=== PATIENT | male | born 1965 | race Caucasian/White ===

== ENCOUNTER 2016-12-06 08:08 | Emergency (ER) | payer OTHER ==
[~2016-12-06] VITALS: Ht 165.1 cm; Wt 89.0 kg
[2016-12-06 08:10] VITALS: Ht 165.1 cm; Wt 89.0 kg
[2016-12-06] MEDS ORDERED: KETOROLAC 30 MG INJ IM STA (08:25)
--- NOTE | 2016-12-06 08:54 | ERD ---
ER Documentation Chief Complaint Date/Time DATE: 12/06/16 TIME: 08:49 Chief Complaint recurrent back/neck pain HPI This patient is a 51-year-old male with history of low back and neck pain ongoing since 1995, treated by his PCP multiple times, patient has had multiple MRIs done on his neck, back, shoulders, and knees, presenting to the emergency department for exacerbation of low back and neck pain for the past 2 days. He states his pain currently is an 8 out of 10 on the pain scale. The pain is exacerbated with movement. He takes [place] at home for pain relief. He states he has an appointment with a painter supervisor next month for possible localized pain relief injections. The patient denies any loss of function of extremities, numbness, tingling, loss of bowel or bladder function, fever, chills, nausea, vomiting, diarrhea, or other symptoms at this time. ROS All systems reviewed and are negative except as per history of present illness. Medications Home Meds Active Scripts Oxycodone HCl/Acetaminophen (Percocet 10-325 mg Tablet) 1 Each Tablet, 1 EACH PO Q6, #20 TAB Prov:LY VALDERRAMA PA-C 12/07/16 Naproxen* (Naprosyn*) 500 Mg Tablet, 500 MG PO BID Y for PAIN AND/OR INFLAMMATION, #30 TAB Prov:LY VALDERRAMA PA-C 12/07/16 Prednisone* (Prednisone*) 20 Mg Tab, 40 MG PO DAILY for 4 Days, TAB Prov:LY VALDERRAMA PA-C 12/07/16 Allergies Allergies: Coded Allergies: No Known Allergy (Unverified , 12/06/16) PMhx/Soc History of Surgery: Yes (arm surgery) Hx Miscellaneous Medical Probl: Yes (back pains) Hx Alcohol Use: No Hx Substance Use: No Hx Tobacco Use: No Smoking Status: Never smoker FmHx Noncontributory for chief complaint Physical Exam Vitals Vital Signs Date Time Temp Pulse Resp B/P Pulse Ox O2 Delivery O2 Flow Rate FiO2 12/06/16 09:20 98.3 74 18 142/66 99 12/06/16 08:10 98.1 99 18 157/78 99 Physical Exam INITIAL VITAL SIGNS: Reviewed by me. GENERAL: Alert and interactive. No acute distress. HEAD: Head is normocephalic and atraumatic. EYES: EOMI. No scleral icterus. No conjunctival injection. ENT: Moist mucosa. NECK: Supple. Limited range of motion secondary to pain. The patient has pain on flexion and extension of his neck. There is no midline tenderness. BACK: The patient has tenderness to palpation of the paraspinal muscles of the lumbar spine. There is no midline tenderness. There is positive straight leg raise test bilaterally. RESPIRATORY: Normal respiratory effort. Clear breath sounds bilaterally. No wheezing, rales, or rhonchi. CV: Regular rate and rhythm. Normal S1 S2. No S3 or S4. No murmurs. ABDOMEN: Soft, non-distended, non-tender. No guarding. No rebound. No masses. EXTREMITIES: No deformity. SKIN: Warm and dry. NEUROLOGIC: Alert and oriented x 4. Speech is normal. Moves all extremities equally. No motor or sensory deficits noted. Results 24 hrs Current Medications Medications (Trade) Dose Ordered Sig/Adina Route PRN Reason Start Time Stop Time Status Last Admin Dose Admin Ketorolac Tromethamine (Toradol) 30 mg ONCE STAT IM 12/06/16 08:25 12/06/16 08:27 DC 12/06/16 08:34 Procedures/MDM 51-year-old male presents to the emergency department for exacerbation of chronic neck and low back pain. The patient is on multiple MRIs done by his primary care physician. He has been treated for pain by his primary care physician and states he has an appointment next month. On physical examination there are no neurological or strength deficits noted. The patient has intact sensation in all 4 extremities. The patient is able to move all 4 extremities equally. The patient brought his MRI results with him and on review he has mild desiccation at L3 through L4 and L5 through S1. He also has disc herniation at C2-C3 through C6-C7. The patient has an appointment for next month with his primary care physician. Because the patient has had outpatient MRI imaging done I believe there is no need for imaging at this time. I have ruled out cauda equina and other spinal emergencies requiring further diagnostic studies or treatment. The patient will be treated in the department with injection of 30 mg of IM Toradol. On reexamination the patient was feeling improved. The patient will be discharged home with a prescription for tramadol to bridge him until his next appointment with his primary care physician. The patient was instructed to return to the emergency department with any new or worsening symptoms. He understands and his questions and concerns of been addressed. He is stable for discharge at this time. Departure Diagnosis: Primary Impression: Chronic back pain Condition: Stable Patient Instructions: Back Pain (Acute Or Chronic) Referrals: EMEKA COOK Additional Instructions: Follow-up with your primary care physician within 1 week. Return to the emergency department immediately should you have any new or worsening symptoms, uncontrolled fevers, or other unexplained symptoms. Take all medications as directed. BIANCA FLORES PA-C Dec 06, 2016 08:54
[2016-12-06 09:20] VITALS: BP 142/66; PULSE 74; RESP 18; TEMP 98.3
[2016-12-07] MEDS ORDERED: PRED20TA PO (01:47)
[2016-12-07] MEDS ORDERED: NAPR-260 PO (01:47)
[2016-12-07] MEDS ORDERED: OXYC-209 PO ×2 (01:47→01:52)
== END 2016-12-06 09:20 | disposition home or self-care (01) ==
LOC: FTE 08:08
DX: M54.5 Low back pain (principal)
CPT/HCPCS: 96372; J1885; Z7502

== ENCOUNTER 2016-12-06 23:52 | Emergency (ER) | payer OTHER ==
[~2016-12-06] VITALS: Ht 170.2 cm; Wt 83.0 kg
[2016-12-06 23:55] VITALS: Ht 170.2 cm; Wt 83.0 kg
[2016-12-07] MEDS ORDERED: ONDANSETRON 4 MG INJ IV STA ×2 (00:54→02:03)
[2016-12-07] MEDS ORDERED: morphine 4 MG/ML VIAL IV STA (00:54)
[2016-12-07] MEDS ORDERED: SOD CHLORIDE 0.9% 500 ML IV ONE (01:00)
[2016-12-07] MEDS ORDERED: DEXAMETHASONE 10 MG/ML 1 ML INJ IV ONE (01:00)
--- NOTE | 2016-12-07 01:17 | ERD ---
ER Documentation Chief Complaint Date/Time DATE: 12/07/16 TIME: 01:09 Chief Complaint neck pain, back pain x 2 days, denies injury HPI 51-year-old male with history of chronic back and neck pain, multiple bulging disks, and spinal canal narrowing along the C-spine, presents to the emergency department with gradually worsening pain in his neck and shoulder region. Patient states he has experienced this pain in the past and has been seen and evaluated by an head orthopedic team physician. Patient underwent MRI of the C-spine in February 2016 which revealed bulging disks in spinal canal narrowing. Patient was prescribed [place] for pain. Patient states that today he has taken 3 [place]'s without relief. He states that he is in 10 out of 10 constant throbbing pain localized to his neck and shoulders without radiation of pain to his arms. Patient denies any low back pain at this time. Patient denies any recent upper respiratory illness, fever, cough, diarrhea, abdominal pain, nausea, or vomiting. Patient states he has follow-up with head orthopedic team physician but is here for pain control. Patient states that he ran out of his [place] supply. ROS All systems reviewed and are negative except as per history of present illness. Allergies Allergies: Coded Allergies: No Known Allergy (Unverified , 12/06/16) PMhx/Soc History of Surgery: Yes (arm surgery) Hx Miscellaneous Medical Probl: Yes (back pains) Hx Alcohol Use: No Hx Substance Use: No Hx Tobacco Use: No Smoking Status: Never smoker Physical Exam Vitals Vital Signs Date Time Temp Pulse Resp B/P Pulse Ox O2 Delivery O2 Flow Rate FiO2 12/06/16 23:55 97.4 102 20 140/104 99 Physical Exam Const: Well-developed, nontoxic-appearing, in moderate distress Head: Atraumatic Eyes: Normal Conjunctiva ENT: Normal External Ears, Nose and Mouth. Neck: Full range of motion..~ No meningismus. Resp: Clear to auscultation bilaterally Cardio: Regular rate and rhythm, no murmurs Abd: Soft, non tender, non distended. Normal bowel sounds Skin: No petechiae or rashes Back: Tender paraspinous muscle upon palpation. Visible paraspinous muscle spasm. Patient unable to rotate, flex, or extend neck due to pain. Full range of motion at shoulder, elbow, wrist joint. +2 point discrimination at radial, median and ulnar distributions of upper extremities bilaterally. No midline or flank tenderness Ext: No cyanosis, or edema Neur: Awake and alert Psych: Normal Mood and Affect Results 24 hrs Current Medications Medications (Trade) Dose Ordered Sig/Adina Route PRN Reason Start Time Stop Time Status Last Admin Dose Admin Morphine Sulfate (morphine) 4 mg ONCE STAT IV 12/07/16 00:54 12/07/16 00:57 DC Ondansetron HCl (Zofran Inj) 4 mg ONCE STAT IV 12/07/16 00:54 12/07/16 00:57 DC Dexamethasone 10 mg 10 mg ONCE ONCE IV 12/07/16 01:00 12/07/16 01:01 DC Sodium Chloride (NS) 500 ml @ 500 mls/hr Q1H ONCE IV 12/07/16 01:00 12/07/16 01:59 Procedures/MDM 51-year-old male with history of chronic low back and cervical spine pain presents to the emergency department for pain control. Patient received IV morphine and IV Decadron while in the emergency department today Based on patient's history of present illness and physical examination the decision was made to discharge. The patient was re-evaluated after ED treatment and stabilizing measures, and symptoms have improved. There is no evidence of life threatening injuries or illnesses at this time. On re-examination, patient resting in no distress, stable vital signs, reports feeling better and safe for discharge with outpatient follow up with PMD in 1-2 days. Patient given return precautions. Patient instructed to follow-up with head orthopedic team physician for possible surgical consult and better management of pain. LY VALDERRAMA PA-C Dec 07, 2016 01:17
[2016-12-07] MEDS ORDERED: PRED20TA PO (01:47)
[2016-12-07] MEDS ORDERED: OXYC-209 PO ×2 (01:47→01:52)
[2016-12-07] MEDS ORDERED: NAPR-260 PO (01:47)
[2016-12-07] MEDS ORDERED: HYDROmorphONE 2 MG/ML SYG IV STA (02:03)
[2016-12-07] MEDS ORDERED: HYDROmorphONE 1 MG/ML SYG IV STA (02:46)
[2016-12-07 03:39] VITALS: BP 132/93; PULSE 97; RESP 20; TEMP 98
== END 2016-12-07 03:41 | disposition home or self-care (01) ==
LOC: FTE 23:52
DX: M54.2 Cervicalgia (principal); M54.5 Low back pain
CPT/HCPCS: 96374; 96375; 96376; J1100; J1170; J2270; J2405; J7040; Z7502

== ENCOUNTER 2017-03-31 00:02 | Emergency (ER) | payer OTHER ==
[~2017-03-31] VITALS: Ht 167.6 cm; Wt 86.5 kg
[~2017-03-31 00:02] MED LIST: NAPR-260 PO; OXYC-209 PO; PRED20TA PO
[2017-03-31 00:05] VITALS: Ht 167.6 cm; Wt 86.5 kg
[2017-03-31] MEDS ORDERED: FLUC150T17 PO (01:50)
[2017-03-31] MEDS ORDERED: CLOT30CR24 TOP (01:50)
--- NOTE | 2017-03-31 02:14 | ERD ---
ER Documentation Chief Complaint Date/Time DATE: 03/31/17 TIME: 02:11 Chief Complaint Pain in the tip of the penile area and cracking of the skin started yesterday. HPI 51-year-old male presents here in emergency department for complaint of pain, cracking of the skin surrounding the tip of the penile area started yesterday. Patient is complaining of pain upon urination because of the open wounds, burning pain 4/10 scale, specifically urination. Patient denies any penile discharge. Patient is uncircumcised. Patient denies any scrotal pain or scrotal swelling. Patient denies any skin or redness. Patient denies any lesions in other parts of the penile area or scrotal area. Patient denies any new sexual partners. ROS All systems reviewed and are negative except as per history of present illness. Medications Home Meds Active Scripts Fluconazole* (Diflucan*) 150 Mg Tablet, 150 MG PO ONCE, #1 TAB Prov:ADY BURRIS TOURIST HOME KEEPER 03/31/17 Clotrimazole* (Clotrimazole* AF) 1% - 30 Gm Cream.gm., 1 APPLIC TOP BID for 7 Days, TUB Prov:ADY BURRIS [employer]OURIST HOME KEEPER 03/31/17 Oxycodone HCl/Acetaminophen (Percocet 10-325 mg Tablet) 1 Each Tablet, 1 EACH PO Q6, #20 TAB Prov:LY VALDERRAMA PA-C 12/07/16 Naproxen* (Naprosyn*) 500 Mg Tablet, 500 MG PO BID Y for PAIN AND/OR INFLAMMATION, #30 TAB Prov:LY VALDERRAMA PA-C 12/07/16 Prednisone* (Prednisone*) 20 Mg Tab, 40 MG PO DAILY for 4 Days, TAB Prov:LY VALDERRAMA PA-C 12/07/16 Allergies Allergies: Coded Allergies: No Known Allergy (Unverified , 12/06/16) PMhx/Soc Medical and Surgical Hx: pt denies Medical Hx History of Surgery: Yes (arm surgery) Hx Miscellaneous Medical Probl: No Hx Alcohol Use: No Hx Substance Use: No Hx Tobacco Use: No Smoking Status: Never smoker FmHx Family History: No coronary disease, No diabetes, No other Physical Exam Vitals Vital Signs Date Time Temp Pulse Resp B/P Pulse Ox O2 Delivery O2 Flow Rate FiO2 03/31/17 00:05 97.0 79 16 140/81 98 Physical Exam GENERAL: The patient is well developed and appropriate for usual state of health, in no apparent distress. CHEST: Clear to auscultation bilaterally. There are no rales, wheezes or rhonchi. HEART: Regular rate and rhythm. No murmurs, clicks, rubs or gallops. No S3 or S4. ABDOMEN: Soft, nontender and nondistended. Good bowel sounds. No rebound or guarding. No gross peritonitis. No gross organomegaly or masses. No Bar sign or McBurney point tenderness. BACK: No midline or flank tenderness. EXTREMITIES: Equal pulses bilaterally. There is no peripheral clubbing, cyanosis or edema. No focal swelling or erythema. Full range of motion. Grossly neurovascularly intact. NEURO: Alert and oriented. Cranial nerves 2-12 intact. Motor strength in all 4 extremities with 5/5 strength. Sensation grossly intact. Normal speech and gait. SKIN: There is no apparent rash or petechia. The skin is warm and dry. HEMATOLOGIC AND LYMPHATIC: There is no evidence of excessive bruising or lymphedema. No gross cervical, axillary, or inguinal lymphadenopathy. : Noted dryness of the skin and maceration on the tip of the penile area with some cracking of the skin noted, no penile discharge noted. No scrotal redness, no scrotal tenderness noted. No penile discharge noted. Procedures/MDM Medical decision making: Patient symptoms most likely is consistent with balanitis. No symptoms of penile discharge, no symptoms of any acute bacterial infection. No suspicion for orchitis epididymitis testicular torsion. No suspicion for any STDs at this time. Prescription was given for clotrimazole, Diflucan, is advised to follow with primary doctor in 2-3 days for reevaluation of symptoms, patient is advised to do good penile hygiene, patient is advised to return to emergency department for any worsening symptoms. Departure Diagnosis: Primary Impression: Balanitis Condition: Stable Patient Instructions: ADY Freitas NP March 31, 2017 02:14
== END 2017-03-31 02:25 | disposition home or self-care (01) ==
LOC: FTE 00:02
DX: N48.1 Balanitis (principal)
CPT/HCPCS: 99284

== ENCOUNTER 2017-11-20 11:57 | Emergency (ER) | END 2017-11-20 13:07 | disposition home or self-care (01) ==

== ENCOUNTER 2018-01-23 06:12 | Emergency (ER) | END 2018-01-23 08:39 | disposition home or self-care (01) ==

== ENCOUNTER 2018-05-31 12:30 | Emergency (ER) | END 2018-05-31 14:00 | disposition home or self-care (01) ==

== ENCOUNTER 2018-08-23 00:34 | Emergency (ER) | END 2018-08-23 02:33 | disposition home or self-care (01) ==

== ENCOUNTER 2018-12-19 09:25 | Emergency (ER) | payer OTHER ==
[~2018-12-19] VITALS: Ht 162.6 cm; Wt 80.6 kg
[~2018-12-19 09:25] MED LIST changes: +ALBU18HF INHALATION; +AMOX1TAB10 PO; +AMOX500C2 PO; +AZIT250T PO; +BENZ200C68 PO; +CLOT30CR24 TOP; +CYCL10TA7 PO; +FLUC150T PO; +GUAI-173 PO; +IBUP-1542 PO; -NAPR-260 PO; +NAPR-985 PO; +PHEN177S6 MM; +TRAM50TA PO; +TRAM50TA2 PO
[2018-12-19 09:32] VITALS: BP 139/93; PULSE 67; RESP 18; Ht 162.6 cm; Wt 80.6 kg
--- NOTE | 2018-12-19 09:46 | ERD ---
ER Documentation Chief Complaint Chief Complaint sorethroat and cough x4 days HPI 53-year-old male, presents to the emergency department, complaining of 4 days with worsening of upper respiratory symptoms including cough, subjective fever, chills and sore throat. The patient denies shortness of breath, no chest pain, no abdominal pain. Medications taken: Robitussin without improvement of the symptoms. The patient is requesting a prescription for antibiotics, he states that amoxicillin does not work for him. ROS All systems reviewed and are negative except as per history of present illness. Medications Home Meds Active Scripts Ibuprofen* (Motrin*) 400 Mg Tab, 400 MG PO Q8, #15 TAB Prov:LYN PRESCOTT MD 12/19/18 [id number]-[id number]-Rfmcbsartr Hb* (Guaifenesin* DM Syrup) 120 Ml Syrup, 10 ML PO Q4H PRN for COUGH, #120 ML Prov:LYN PRESCOTT MD 12/19/18 Azithromycin* (Zithromax*) 250 Mg Tablet, 250 MG PO .ZPACK DIRECTED, #6 TAB TAKE 500 MG (2 TABS) THE FIRST DAY THEN 250 MG (1 TAB) DAYS 2-5 Prov:LYN PRESCOTT MD 12/19/18 Guaifenesin* (Tussin*) 100 Mg/5 Ml Syrup, 200 MG PO Q6 PRN for COUGH, #120 ML Prov:CHANDRAKANT STORM 08/23/18 Phenol* (Throat [place]*) 177 Ml [place], 2 SPRAY MM Q2H PRN for SORE THROAT for 3 Days, SPRAY Prov:CHANDRAKANT STORM 08/23/18 Ibuprofen* (Motrin*) 600 Mg Tab, 600 MG PO Q6, #30 TAB Prov:CHANDRAKANT STORM 08/23/18 Azithromycin* (Zithromax*) 250 Mg Tablet, 250 MG PO .ZPACK DIRECTED, #6 TAB TAKE 500 MG (2 TABS) THE FIRST DAY THEN 250 MG (1 TAB) DAYS 2-5 Prov:CHANDRAKANT STORM 08/23/18 Tramadol HCl (Tramadol HCl) 50 Mg Tablet, 50 MG PO Q4 PRN for PAIN, #20 TAB Prov:NOE SOLANO MD 05/31/18 Tramadol Hcl* (Ultram*) 50 Mg Tablet, 50 MG PO Q6H PRN for PAIN, #20 TAB Prov:NOE SOLANO MD 05/31/18 Cyclobenzaprine Hcl* (Cyclobenzaprine Hcl*) 10 Mg Tablet, 10 MG PO TID, #20 TAB Prov:NOE SOLANO MD 05/31/18 Prednisone* (Prednisone*) 20 Mg Tab, 40 MG PO DAILY for 4 Days, TAB Prov:NOE SOLANO MD 05/31/18 Prednisone* (Prednisone*) 20 Mg Tab, 40 MG PO DAILY for 5 Days, TAB Prov:OSVALDO YU PA-C 01/23/18 Amoxicillin/Potassium Clav (Amox-Clav 875-125 mg Tablet) 875-125 mg Tab, 1 TAB PO BID, #20 TAB Prov:OSVALDO YU PA-C 01/23/18 Amoxicillin* (Amoxicillin*) 500 Mg Cap, 500 MG PO BID for 14 Days, CAP Prov:OSVALDO YU PA-C 01/23/18 Ibuprofen* (Motrin*) 600 Mg Tab, 600 MG PO Q6, #30 TAB Prov:BIANCA FLORES PA-C 11/20/17 Benzonatate* (Benzonatate*) 200 Mg Capsule, 200 MG PO TID PRN for COUGH, #20 CAP Prov:BIANCA FLORES PA-C 11/20/17 Albuterol Sulfate* (Ventolin HFA*) 18 Gm Hfa.aer.ad, 2 PUFF INHALATION Q4H, #1 INHALER Prov:BIANCA FLORES PA-C 11/20/17 Azithromycin* (Zithromax*) 250 Mg Tablet, 250 MG PO .ZPACK DIRECTED, #6 TAB TAKE 500 MG (2 TABS) THE FIRST DAY THEN 250 MG (1 TAB) DAYS 2-5 Prov:BIANCA FLORES PA-C 11/20/17 Fluconazole* (Diflucan*) 150 Mg Tablet, 150 MG PO ONCE, #1 TAB Prov:ADY BURRIS NP 03/31/17 Clotrimazole* (Clotrimazole* AF) 1% - 30 Gm Cream.gm., 1 APPLIC TOP BID for 7 Days, TUB Prov:ADY BURRIS PRINTING MACHINIST 03/31/17 Oxycodone HCl/Acetaminophen (Percocet 10-325 mg Tablet) 1 Each Tablet, 1 EACH PO Q6, #20 TAB Prov:LY VALDERRAMA PA-C 12/07/16 Naproxen* (Naprosyn*) 500 Mg Tablet, 500 MG PO BID PRN for PAIN AND/OR INFLAMMATION, #30 TAB Prov:LY VALDERRAMA PA-C 12/07/16 Prednisone* (Prednisone*) 20 Mg Tab, 40 MG PO DAILY for 4 Days, TAB Prov:LY VALDERRAMA PA-C 12/07/16 Allergies Allergies: Coded Allergies: No Known Allergy (Unverified , 12/06/16) PMhx/Soc History of Surgery: No Anesthesia Reaction: No Hx Neurological Disorder: No Hx Respiratory Disorders: No Hx Cardiac Disorders: No Hx Psychiatric Problems: No Hx Miscellaneous Medical Probl: No Hx Alcohol Use: No Hx Substance Use: No Hx Tobacco Use: No FmHx Family History: No diabetes, No coronary disease Physical Exam Vitals Vital Signs Date Temp Pulse Resp B/P (MAP) Pulse Ox O2 O2 Flow FiO2 Time Delivery Rate 12/19/18 97.8 67 18 139/93 98 09:32 (108) Physical Exam Const: No acute distress Head: Atraumatic Eyes: Injected conjunctiva ENT: Erythematous oropharynx, tonsils not enlarged. Neck: Full range of motion. No meningismus. Resp: Rhonchi to auscultation bilaterally Cardio: Regular rate and rhythm, no murmurs Abd: Soft, non tender, non distended. Normal bowel sounds Skin: No petechiae or rashes Back: No midline or flank tenderness Ext: No cyanosis, or edema Neur: Awake and alert Psych: Normal Mood and Affect Procedures/MDM Vital signs stable, no respiratory distress. Differential diagnosis include but not limited to: Respiratory infection bacterial/viral/fungal. Influenza, croup, bronchiolitis, pneumonitis, allergies, GERD. Less likely foreign body aspiration, cardiac related. Physical examination and clinical presentation consistent most likely with viral infection with early superimposed bacterial infection. During the ED course the patient remained stable, no new complaints. Treatment options and clinical impression discussed with the patient who agrees with management. The patient is stable to be treated outpatient and will be discharged home. Some side effects of prescribed medications (headache, rash, nausea, vomiting, diarrhea, interactions with other medications) were reviewed. The patient needs to follow up with the primary care provider in the next 48h. If symptoms persist, worsen or new symptoms develop, then patient should return to the ED immediately. Disclaimer: Inadvertent spelling and grammatical errors are likely due to EHR/dictation software use and do not reflect on the overall quality of patient care. Also, please note that the electronic time recorded on this note does not necessarily reflect the actual time of the patient encounter. Departure Diagnosis: Primary Impression: Cough Condition: Stable Additional Instructions: Muchas latasha por [facility] para mccain servicio. Esperamos que en mccain visita a la margarita de emergencia mccain problema medico haya sido solucionado y que se sienta mucho mejor. Para estar seguros que mccain mejoria sigue en proceso, le pedimos el favor de hacer fartun charlie de seguimiento medico con mccain doctor primario en los proximos 2-4 cat. Lleve con usted estos documentos y las medicinas recetadas. Si brittney sintomas empeoran, NO SE ESPERE, por favor regrese a margarita de emergencia INMEDIATAMENTE. En nelli que usted no tenga un mdico de atencin primaria: Llame al mdico o clnica comunitaria de referencia que aparece abajo eden las horas de consultorio para hacer fartun charlie para que le vean. CLINICAS: [facility] [phone] [facility] [phone] [facility] [phone] [facility] [phone] [address] [place] [phone] [facility]. [phone] LNY BLAKE MD Dec 19, 2018 09:46
[2018-12-19] MEDS ORDERED: GUAI120S26 PO (09:55)
[2018-12-19] MEDS ORDERED: AZIT250T PO (09:55)
[2018-12-19] MEDS ORDERED: IBUP-1561 PO (09:55)
== END 2018-12-19 10:07 | disposition home or self-care (01) ==
LOC: FTE 09:25
DX: R05 Cough (principal)
CPT/HCPCS: 99283

== ENCOUNTER 2019-02-24 15:45 | Emergency (ER) | payer OTHER ==
[~2019-02-24] VITALS: Ht 170.2 cm; Wt 78.0 kg
[~2019-02-24 15:45] MED LIST changes: +GUAI120S26 PO; +IBUP-1561 PO
[2019-02-24 15:51] VITALS: BP 147/70; PULSE 85; RESP 19; Ht 170.2 cm; Wt 78.0 kg
[2019-02-24] MEDS ORDERED: KETOROLAC 60 MG INJ IM STA (17:31)
[2019-02-24] MEDS ORDERED: traMADol 50 MG TAB PO ONE (18:00)
[2019-02-24] MEDS ORDERED: DIAZEPAM 5 MG TAB PO ONE (18:00)
[2019-02-24] MEDS ORDERED: TRAM50TA2 PO (18:20)
[2019-02-24] MEDS ORDERED: IBUP800T48 PO (18:20)
[2019-02-24] MEDS ORDERED: BACL10TA PO (18:20)
[2019-02-24] MEDS ORDERED: PRED20TA PO (18:20)
--- NOTE | 2019-02-24 20:36 | ERD ---
ER Documentation Chief Complaint Chief Complaint right arm, shoulder, back pain x 4 months got worse HPI History of Present Illness: Patient coming in today with complaint of chronic right arm pain, right shoulder pain, generalized back pain for 4 months; patient reports pain has worsened over the past 2 months. Patient reports he has seen pain management at the end of 2018 in which he was given several injections in his neck and shoulders, some relief with pain but he is hesitant that too many medications can be problematic. Patient denies any joint genitourinary symptoms, neurological symptoms, or any other associated symptoms. At home pharmacological/nonpharmacological treatment for symptoms: denies Denies social concerns; Denies recent foreign travel ROS All systems reviewed and are negative except as per history of present illness. Medications Home Meds Active Scripts Baclofen* (Baclofen*) 10 Mg Tablet, 10 MG PO BID PRN for MUSCLE SPASMS, #30 TAB Prov:LILIA BO NP 02/24/19 Tramadol HCl (Tramadol HCl) 50 Mg Tablet, 50 MG PO Q8 PRN for PAIN LEVEL 6-10, #20 TAB Prov:LILIA BO NP 02/24/19 Ibuprofen* (Motrin*) 800 Mg Tab, 800 MG PO Q8 for pain/inflammation for 5 Days, #30 TAB Prov:LILIA BO NP 02/24/19 Prednisone* (Prednisone*) 20 Mg Tab, 40 MG PO DAILY for back/neck pain for 5 Days, TAB Take every 8 hours for the next 5 days, then take every 6-8 hours as needed for pain/inflammation. Prov:LILIA BO NP 02/24/19 Ibuprofen* (Motrin*) 400 Mg Tab, 400 MG PO Q8, #15 TAB Prov:LYN PRESCOTT MD 12/19/18 Xumkwbkulsc-S-Rbkonmsbth Hb* (Guaifenesin* DM Syrup) 120 Ml Syrup, 10 ML PO Q4H PRN for COUGH, #120 ML Prov:LYN PRESCOTT MD 12/19/18 Azithromycin* (Zithromax*) 250 Mg Tablet, 250 MG PO .ZPACK DIRECTED, #6 TAB TAKE 500 MG (2 TABS) THE FIRST DAY THEN 250 MG (1 TAB) DAYS 2-5 Prov:LYN PRESCOTT MD 12/19/18 Guaifenesin* (Tussin*) 100 Mg/5 Ml Syrup, 200 MG PO Q6 PRN for COUGH, #120 ML Prov:CHANDRAKANT STORM 08/23/18 Phenol* (Throat Raleigh*) 177 Ml [place], 2 SPRAY MM Q2H PRN for SORE THROAT for 3 Days, SPRAY Prov:CHANDRAKANT STORM 08/23/18 Ibuprofen* (Motrin*) 600 Mg Tab, 600 MG PO Q6, #30 TAB Prov:CHANDRAKANT STORM 08/23/18 Azithromycin* (Zithromax*) 250 Mg Tablet, 250 MG PO .ZPACK DIRECTED, #6 TAB TAKE 500 MG (2 TABS) THE FIRST DAY THEN 250 MG (1 TAB) DAYS 2-5 Prov:CHANDRAKANT STORM 08/23/18 Tramadol HCl (Tramadol HCl) 50 Mg Tablet, 50 MG PO Q4 PRN for PAIN, #20 TAB Prov:NOE SOLANO MD 05/31/18 Tramadol Hcl* (Ultram*) 50 Mg Tablet, 50 MG PO Q6H PRN for PAIN, #20 TAB Prov:NOE SOLANO MD 05/31/18 Cyclobenzaprine Hcl* (Cyclobenzaprine Hcl*) 10 Mg Tablet, 10 MG PO TID, #20 TAB Prov:NOE SOLANO MD 05/31/18 Prednisone* (Prednisone*) 20 Mg Tab, 40 MG PO DAILY for 4 Days, TAB Prov:NOE SOLANO MD 05/31/18 Prednisone* (Prednisone*) 20 Mg Tab, 40 MG PO DAILY for 5 Days, TAB Prov:OSVALDO YU PA-C 01/23/18 Amoxicillin/Potassium Clav (Amox-Clav 875-125 mg Tablet) 875-125 mg Tab, 1 TAB PO BID, #20 TAB Prov:OSVALDO YU PA-C 01/23/18 Amoxicillin* (Amoxicillin*) 500 Mg Cap, 500 MG PO BID for 14 Days, CAP Prov:OSVALDO YU PA-C 01/23/18 Ibuprofen* (Motrin*) 600 Mg Tab, 600 MG PO Q6, #30 TAB Prov:BIANCA FLORESC 11/20/17 Benzonatate* (Benzonatate*) 200 Mg Capsule, 200 MG PO TID PRN for COUGH, #20 CAP Prov:BIANCA FLORES PA-C 11/20/17 Albuterol Sulfate* (Ventolin HFA*) 18 Gm Hfa.aer.ad, 2 PUFF INHALATION Q4H, #1 INHALER Prov:BIANCA FLORES PA-C 11/20/17 Azithromycin* (Zithromax*) 250 Mg Tablet, 250 MG PO .ZPACK DIRECTED, #6 TAB TAKE 500 MG (2 TABS) THE FIRST DAY THEN 250 MG (1 TAB) DAYS 2-5 Prov:BIANCA FLORES PA-C 11/20/17 Fluconazole* (Diflucan*) 150 Mg Tablet, 150 MG PO ONCE, #1 TAB Prov:ADY BURRIS NP 03/31/17 Clotrimazole* (Clotrimazole* AF) 1% - 30 Gm Cream.gm., 1 APPLIC TOP BID for 7 Days, TUB Prov:ADY BURRIS NP 03/31/17 Oxycodone HCl/Acetaminophen (Percocet 10-325 mg Tablet) 1 Each Tablet, 1 EACH PO Q6, #20 TAB Prov:LY VALDERRAMA PA-C 12/07/16 Naproxen* (Naprosyn*) 500 Mg Tablet, 500 MG PO BID PRN for PAIN AND/OR INFLAMMATION, #30 TAB Prov:LY VALDERRAMA PA-C 12/07/16 Prednisone* (Prednisone*) 20 Mg Tab, 40 MG PO DAILY for 4 Days, TAB Prov:LY VALDERRAMA PA-C 12/07/16 Allergies Allergies: Coded Allergies: No Known Allergy (Unverified , 12/06/16) PMhx/Soc History of Surgery: No Anesthesia Reaction: No Hx Neurological Disorder: No Hx Respiratory Disorders: No Hx Cardiac Disorders: No Hx Psychiatric Problems: No Hx Miscellaneous Medical Probl: No Hx Alcohol Use: No Hx Substance Use: No Hx Tobacco Use: No Smoking Status: Never smoker FmHx Family History: No diabetes Physical Exam Vitals Vital Signs Date Temp Pulse Resp B/P (MAP) Pulse Ox O2 O2 Flow FiO2 Time Delivery Rate 4/10/19 98.3 85 19 147/70 100 15:51 (95) Physical Exam Const: No acute distress, afebrile Head: Atraumatic Eyes: Normal Conjunctiva ENT: Normal External Ears, Nose and Mouth. Neck: Full range of motion. No meningismus. Resp: Clear to auscultation bilaterally Cardio: Regular rate and rhythm, no murmurs Abd: Soft, non tender, non distended. No guarding, no masses, no rigidity Skin: No petechiae or rashes Back: No midline or flank tenderness; tenderness to palpation to paraspinal cervical, trapezius muscles, paraspinal lumbar Ext: No cyanosis, or edema Neur: Awake and alert x3, speaking in clear sentences, no focal deficits or facial asymmetry Psych: Normal Mood and Affect Results 24 hrs Current Medications Medications Dose Sig/Adina Start Time Status Last (Trade) Ordered Route PRN Stop Time Admin Dose Reason Admin Tramadol 50 mg ONCE ONCE 02/24/19 DC HCl PO 18:00 (Ultram) 02/24/19 18:23 Diazepam 10 mg ONCE ONCE 02/24/19 DC (Valium) PO 18:00 02/24/19 18:23 Ketorolac 60 mg ONCE STAT 02/24/19 DC 02/24/19 Tromethamine IM 17:31 17:49 (Toradol) 02/24/19 17:32 Procedures/MDM ED course includes a thorough examination and history. Medications: Toradol Imaging: None done Labs: None done Low suspicion for life-threatening medical emergency. Low suspicion for neuro logical emergency, cauda equina. Low suspicion for medical emergency that requires hospitalization/immediate surgery. Otherwise healthy patient presenting with constellation of symptoms likely representing uncomplicated muscle spasm secondary to chronic back pain as characterized by history, physical exam findings. No respiratory distress, otherwise relatively well appearing and nontoxic. Patient educated on diagnoses, prescriptions, follow-up care, return precautions. Strict return precautions given for worsening condition; questions answered discharge. Disposition for discharge with followup in 2 days with PCP/clinic. Departure Diagnosis: Primary Impression: Muscle spasm Additional Impression: Chronic back pain Back pain location: back pain in unspecified location Back pain laterality: unspecified Qualified Codes: M54.9 - Dorsalgia, unspecified; G89.29 - Other chronic pain Condition: Stable Patient Instructions: Muscle Spasm, Chronic Pain Referrals: COMMUNITY CLINICS YOU HAVE RECEIVED A MEDICAL SCREENING EXAM AND THE RESULTS INDICATE THAT YOU DO NOT HAVE A CONDITION THAT REQUIRES URGENT TREATMENT IN THE EMERGENCY DEPARTMENT. FURTHER EVALUATION AND TREATMENT OF YOUR CONDITION CAN WAIT UNTIL YOU ARE SEEN IN YOUR DOCTORS OFFICE WITHIN THE NEXT 1-2 DAYS. IT IS YOUR RESPONSIBILITY TO MAKE AN APPOINTMENT FOR FOLOW-UP CARE. IF YOU HAVE A PRIMARY DOCTOR --you should call your primary doctor and schedule an appointment IF YOU DO NOT HAVE A PRIMARY DOCTOR YOU CAN CALL OUR PHYSICIAN REFERRAL HOTLINE AT IF YOU CAN NOT AFFORD TO SEE A PHYSICIAN YOU CAN CHOSE FROM THE FOLLOWING [facility] [address] [facility]. [facility] [address] [facility] [address] [facility] [facility] [address] [facility] [facility] [address] [facility] [facility]. [facility]. [address] [facility]. [facility] YOU HAVE RECEIVED A MEDICAL SCREENING EXAM AND THE RESULTS INDICATE THAT YOU DO NOT HAVE A CONDITION THAT REQUIRES URGENT TREATMENT IN THE EMERGENCY DEPARTMENT. FURTHER EVALUATION AND TREATMENT OF YOUR CONDITION CAN WAIT UNTIL YOU ARE SEEN IN YOUR DOCTORS OFFICE WITHIN THE NEXT 1-2 DAYS. IT IS YOUR RESPONSIBILITY TO MAKE AN APPOINTMENT FOR FOLOW-UP CARE. IF YOU HAVE A PRIMARY DOCTOR --you should call your primary doctor and schedule and appointment IF YOU DO NOT HAVE A PRIMARY DOCTOR YOU CAN CALL OUR PHYSICIAN REFERRAL HOTLINE AT . IF YOU CAN NOT AFFORD TO SEE A PHYSICIAN YOU CAN CHOSE FROM THE FOLLOWING [facility] INSTITUTIONS: [facility] [address] [place] [address] [facility] [address] [place] [address] [facility] + [facility] [address] [place] [address] Additional Instructions: Thank you very much for allowing us to participate in your care. Your health and safety is our top priority at [facility]. It is important to read all discharge instructions and education provided in your discharge packet. Call your primary care doctor TOMORROW for an appointment during the next 2-4 da ys and bring all the information and medications prescribed. It is important to make an appointment with pain management for further evaluation and care. Have prescriptions filled and follow precisely the directions on the label. Baclofen is for muscle spasm; this medication can cause drowsiness so do not operate heavy machinery while taking this medication. Tramadol is for moderate to severe pain; this medication can cause drowsiness so do not operate heavy machinery while taking this medication. Prednisone is for inflammation; take this medication for the next 5 days to help with the back muscle spasms. Ibuprofen is for inflammatory pain; take this medication every 8 hours for the next 5 days, then as needed. If the symptoms get worse and your provider is unavailable, return to the Emergency Department immediately. LILIA BO NP Feb 24, 2019 20:36
== END 2019-02-24 18:38 | disposition home or self-care (01) ==
LOC: FTE 15:45
DX: M62.838 Other muscle spasm (principal); M54.9 Dorsalgia, unspecified
CPT/HCPCS: 96372; Z7502